=== PATIENT | female | born 1995 | race Caucasian/White ===

== ENCOUNTER 2017-04-12 20:32 | Observation (INO) | payer OTHER, SELFPAY ==
[~2017-04-12] VITALS: Ht 170.2 cm; Wt 61.3 kg
[2017-04-12] MEDS ORDERED: NS 1,000 ML IV SCH (21:16)
[2017-04-12] MEDS ORDERED: dexameTHASONE 20 MG/5 ML VIAL (J1100) IV ONE (21:30)
[2017-04-12] MEDS ORDERED: KETOROLAC 30 MG/ML VIAL (J1885) IV ONE (21:30)
[2017-04-12 21:47] LABS: BASO % 0.5 % (0.0-1.0); EOS # 0.2 K/mm3 (0.0-0.50); EOS % 1.7 % (0.0-3.0); LARGE UNSTAINED CELL # 0.1 K/mm3 (0.0-0.4); LARGE UNSTAINED CELL % 0.8 % (0.0-4.0); LYMPH # 1.7 K/mm3 (1.5-6.5); MEAN CORPUSCULAR HGB CONC 35.2 g/dl (32.0-36.5); MONO # 0.4 K/mm3 (0.0-0.8); MONO % 3.8 % (0.0-5.0); NEUTROPHILS # 7.5 K/mm3 (1.8-7.7); NEUTROPHILS % 76.2 % (36.0-66.0); PLATELET COUNT, AUTOMATED 180 k/mm3 (150-450); RED CELL DISTRIBUTION WIDTH 13.4 % (11.5-14.5); WHITE BLOOD COUNT 9.8 K/mm3 (4.0-10.0)
[2017-04-12 22:03] LABS: CONTROL LINE HCG INT CTR LINE PRESENT
[2017-04-12 22:22] LABS: METHADONE URINE NEGATIVE (NEGATIVE)
[2017-04-12 22:24] LABS: ALBUMIN 3.6 GM/DL (3.2-5.2); ALBUMIN/GLOBULIN RATIO 1.29 (1.00-1.93); ALKALINE PHOSPHATASE 70 U/L (45-117); ALT/SGPT 24 U/L (12-78); ANION GAP 9 MEQ/L (8-16); AST/SGOT 16 U/L (15-37); BILIRUBIN,DIRECT < 0.1 MG/DL (0.0-0.2); BILIRUBIN,TOTAL 0.3 MG/DL (0.2-1.0); BLOOD UREA NITROGEN 15 MG/DL (7-18); CALCIUM LEVEL 8.4 MG/DL (8.5-10.1); CARBON DIOXIDE LEVEL 24 MEQ/L (21-32); CHLORIDE LEVEL 112 MEQ/L (98-107); CREATININE FOR GFR 1.22 MG/DL (0.55-1.02); GLOMERULAR FILTRATION RATE 59.2 (>60); GLUCOSE, FASTING 82 MG/DL (70-105); SODIUM LEVEL 145 MEQ/L (136-145); TOTAL PROTEIN 6.4 GM/DL (6.4-8.2)
--- NOTE | 2017-04-12 23:20 | REPUSA ---
CT of the head Clinical history: altered mental status. Technique: Multiple axial CT images were obtained through the head without administration of contrast . Comparison: None. Findings: The ventricles and sulci are symmetric bilaterally. There is no evidence of acute hemorrhag e or infarct. There is no midline shift, mass effect, or extra-axial fluid collection. The osseous st ructures are unremarkable. The visualized paranasal sinuses and mastoid air cells are clear. Impression: Negative study.
[2017-04-12] MEDS ORDERED: TOPIRAMATE (TopAMAX) 25 MG TAB PO ONE (23:45)
[2017-04-13] MEDS ORDERED: MORPHINE 4 MG/ML 1ML SYRINGE IV ONE (00:45)
[2017-04-13] MEDS: NS 1,000 ML IV SCH ×4 (00:50→14:04)
[2017-04-13] MEDS ORDERED: KETOROLAC 30 MG/ML VIAL (J1885) IV PRN (03:30)
[2017-04-13] MEDS ORDERED: ONDANSETRON 4MG/2ML VIAL (J2405) IV PRN (03:30)
--- NOTE | 2017-04-13 03:41 | HPEPDOC ---
General Date of Admission Other Providers Presented from [place] Attending Physician: MILO GOMEZ DO Chief Complaint The patient is a 21-year-old female admitted with a reason for visit of Pain All Over/Headache. Source: Patient Exam Limitations: No limitations Timing/Duration: 4-6 hours Severity: Severe Associated Symptoms: Headaches, Malaise, Nausea, Vomiting, Weakness, Dizziness History of Present Illness 21-year-old female serving in [employer], presented with intractable headache for past few hours associated with nausea, vomiting, weakness, dizziness. She never had similar symptoms in the past. She denies any focal weakness, tingling, numbness last months. He was treated for Lyme meningitis with the doxycycline and she was hospitalized for 6 days and had bed rest for 6 days. Evidently she got very covered, but now her headache is back. It is generally by 10 in intensity, sharp, radiating to neck and back associated with eye pain. Patient also appears confused, difficulty concentrating, unable to sleep Home Medications No Active Prescriptions or Reported Meds Allergies Coded Allergies: No Known Allergies (Unverified , 04/12/17) Past Medical History Medical History None Surgical History Appendectomy Family History None Social History * Smoker: Denies Alcohol: Denies Drugs: denies Recent Travel/Sick Contacts: Denies: Recent travel, Recent sick contacts Psychosocial History: No pertinent psych hx Review of Symptoms Constitutional: Reports: Other (headache), Denies: Chills, Fever, Night Sweats Eyes: Denies: Pain, Vision change ENT: Denies: Head Aches, Ear Pain, Dysphagia Skin: Denies: Rash, Lesions, Breakdown Pulmonary: Denies: Dyspnea, Cough Cardiovascular: Denies: Chest Pain, Palpitations, Orthopnea, Paroxysmal Noc. Dyspnea, Lt Headedness Gastrointestinal: Denies: Nausea, Vomiting, Abdominal Pain, Diarrhea Genitourinary: Denies: Dysuria, Frequency, Incontinence, Retention Hematologic: Denies: Bruising, Bleeding Excessively Musculoskeletal: Denies: Neck Pain, Back Pain, Joint Pain, Muscle Pain, Spasms Neurological: Reports: Confusion, Denies: Weakness, Numbness, Change in speech Psych: Reports: Mood Normal, Denies: Depression, Memory Issues Physical Examination General Exam: Positive: Alert, No Acute Distress Eye Exam: Positive: PERRLA, Conjunctiva & lids normal, EOMI, Negative: Sclera icteric ENT Exam: Positive: Atraumatic, Mucous membr. moist/pink, Pharynx Normal Neck Exam: Positive: Supple, Negative: JVD, thyromegaly Chest Exam: Positive: Clear to auscultation, Normal air movement Heart Exam: Positive: Rate Normal, Regular Rhythm, Normal S1, Normal S2, Negative: Murmurs, Rubs Telemetry: Positive: No significant arrhythmia Abdomen Exam: Positive: Normal bowel sounds, Soft, Negative: Tenderness, Hepatospenomegaly Extremity Exam: Positive: Normal pulses, Negative: Clubbing, Cyanosis, Edema Skin Exam: Positive: Nl turgor and temperature, Negative: Breakdown, Lesion Neuro Exam: Positive: Normal Gait, Normal Speech, Cranial Nerves 3-12 NL, Reflexes 2+ Psych Exam: Positive: Mental status NL, Mood NL, Oriented x 3 Vital Signs Vital Signs Date Time Temp Pulse Resp B/P (MAP) Pulse Ox O2 Delivery O2 Flow Rate FiO2 04/13/17 02:16 97.5 70 18 115/59 (77) 99 Room Air Laboratory Data Labs 24H Laboratory Tests 2 04/12/17 21:28: White Blood Count 9.8, Red Blood Count 3.99L, Hemoglobin 12.8, Hematocrit 36.3, Mean Corpuscular Volume 91.0, Mean Corpuscular Hemoglobin 32.0, Mean Corpuscular Hemoglobin Concent 35.2, Red Cell Distribution Width 13.4, Platelet Count 180, Neutrophils (%) (Auto) 76.2H, Lymphocytes (%) (Auto) 17.0L, Monocytes (%) (Auto) 3.8, Eosinophils (%) (Auto) 1.7, Basophils (%) (Auto) 0.5, Neutrophils # (Auto) 7.5, Lymphocytes # (Auto) 1.7, Monocytes # (Auto) 0.4, Eosinophils # (Auto) 0.2, Basophils # (Auto) 0.0, Large Unclassified Cells % 0.8 , Large Unclassified Cells # 0.1, Anion Gap 9, Glomerular Filtration Rate 59.2L , Calcium Level 8.4L, Aspartate Amino Transf (AST/SGOT) 16, Alanine Aminotransferase (ALT/SGPT) 24, Alkaline Phosphatase 70, Total Bilirubin 0.3, Direct Bilirubin < 0.1, Total Protein 6.4, Albumin 3.6, Albumin/Globulin Ratio 1.29, Thyroid Stimulating Hormone (TSH) 2.980, Human Chorionic Gonadotropin, Qual NEGATIVE, Salicylates Level < 1.7L, Urine Amphetamines Screen NEGATIVE, Urine Benzodiazepines Screen NEGATIVE, Urine Opiates Screen NEGATIVE, Urine Methadone Screen NEGATIVE, Acetaminophen Level 4.9L, Urine Barbiturates Screen NEGATIVE, Urine Phencyclidine Screen NEGATIVE, Urine Cocaine Metabolite Screen NEGATIVE, Urine Cannabinoids Screen NEGATIVE CBC/BMP Laboratory Tests 04/12/17 21:28 Red Blood Count 3.99 L, Mean Corpuscular Volume 91.0, Mean Corpuscular Hemoglobin 32.0, Mean Corpuscular Hemoglobin Concent 35.2, Red Cell Distribution Width 13.4, Neutrophils (%) (Auto) 76.2 H, Lymphocytes (%) (Auto) 17.0 L, Monocytes (%) (Auto) 3.8, Eosinophils (%) (Auto) 1.7, Basophils (%) ( Auto) 0.5, Neutrophils # (Auto) 7.5, Lymphocytes # (Auto) 1.7, Monocytes # (Auto ) 0.4, Eosinophils # (Auto) 0.2, Basophils # (Auto) 0.0 Assessment/Plan 21-year-old female, history of Lyme meningitis last month completed antibiotic course serving in the [employer], presented with intractable headache. CT scan of the head was unremarkable Problems (1) Headache, common migraine, intractable Status: Acute Problem Text: Really start IV Toradol 15 mg every 6 hours for pain control, also due to edema. We will call neurologist if it is seem necessary. Get MRI of the brain dated no fever. No neck stiffness , meningitis is less likely Plan / VTE VTE Prophylaxis Ordered?: Yes Plan Diet: Continue Current Activity: Continue Current Anticipated Discharge: Home LATOSHA SARGENT MD Apr 13, 2017 03:41
[2017-04-13 04:30] VITALS: BP 108/56
[2017-04-13 07:45] LABS: BASO % 0.2 % (0.0-1.0); EOS % 0.3 % (0.0-3.0); LARGE UNSTAINED CELL % 0.3 % (0.0-4.0); LYMPH # 0.5 K/mm3 (1.5-6.5); MEAN CORPUSCULAR HEMOGLOBIN 31.6 pg (27.0-33.0); MEAN CORPUSCULAR VOLUME 92.9 fl (80.0-96.0); MONO # 0.2 K/mm3 (0.0-0.8); MONO % 1.6 % (0.0-5.0); NEUTROPHILS # 9.8 K/mm3 (1.8-7.7); NEUTROPHILS % 92.6 % (36.0-66.0); PLATELET COUNT, AUTOMATED 160 k/mm3 (150-450); RED CELL DISTRIBUTION WIDTH 13.1 % (11.5-14.5); WHITE BLOOD COUNT 10.6 K/mm3 (4.0-10.0)
[2017-04-13 08:00] VITALS: BP 119/59
[2017-04-13 08:06] LABS: ALBUMIN 3.3 GM/DL (3.2-5.2); ALBUMIN/GLOBULIN RATIO 1.14 (1.00-1.93); ALKALINE PHOSPHATASE 58 U/L (45-117); ALT/SGPT 22 U/L (12-78); ANION GAP 7 MEQ/L (8-16); AST/SGOT 9 U/L (15-37); BILIRUBIN,TOTAL 0.5 MG/DL (0.2-1.0); BLOOD UREA NITROGEN 11 MG/DL (7-18); CALCIUM LEVEL 8.4 MG/DL (8.5-10.1); CARBON DIOXIDE LEVEL 22 MEQ/L (21-32); CHLORIDE LEVEL 112 MEQ/L (98-107); CREATININE FOR GFR 0.77 MG/DL (0.55-1.02); GLOMERULAR FILTRATION RATE > 60.0 (>60); GLUCOSE, FASTING 112 MG/DL (70-105); POTASSIUM SERUM 4.3 MEQ/L (3.5-5.1); SODIUM LEVEL 141 MEQ/L (136-145); TOTAL PROTEIN 6.2 GM/DL (6.4-8.2)
[2017-04-13] MEDS ORDERED: TOPIRAMATE (TopAMAX) 25 MG TAB PO SCH (09:00)
[2017-04-13] MEDS ORDERED: ENOXAPARIN 40 MG/0.4 ML SYRINGE (J1650) SC SCH (09:00)
[2017-04-13] MEDS ORDERED: PERCOCET 5MG/325MG TAB PO ONE (10:00)
[2017-04-13] MEDS ORDERED: MORPHINE 2 MG/ML 1ML SYRINGE IV PRN (10:00)
[2017-04-13] MEDS ORDERED: NALOXONE INJ 0.4 MG/1 ML VIAL (J2310) IV PRN (10:00)
[2017-04-13] MEDS ORDERED: PERCOCET 5MG/325MG TAB PO PRN ×2 (10:00)
--- NOTE | 2017-04-13 12:03 | REP ---
MR BRAIN WITHOUT CONTRAST: HISTORY: Headache. COMPARISON: CT 04/12/2017. There are no areas of abnormal signal intensity in the brain. There is no intraparenchymal hemorrhage, infarct, mass or midline shift. 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 The ventricular system is normal in appearance. There is no extracerebral collection. A retention cyst is present in the left maxillary sinus. IMPRESSION: There is no intracranial lesion. Signed by Bayron Estrada MD 04/13/2017 12:18 P
[2017-04-13 12:30] VITALS: BP 120/73
[2017-04-13] MEDS ORDERED: PERCOCET PO (14:57)
[2017-04-13] MEDS ORDERED: TOPA25TA10 PO (14:57)
[2017-04-13 15:23] VITALS: BP 120/73
--- NOTE | 2017-04-13 16:20 | REP ---
MRA HEAD WITHOUT AND WITH CONTRAST: HISTORY: Headache. CONTRAST: ProHance 12 mL. Unenhanced and enhanced 2D [id number] MR venography was performed. There are no filling defects in the deep venous system or dural sinuses. The deep venous system and dural sinuses are patent. There are no focal areas of stenosis. IMPRESSION:Normal MRA head. Signed by Bayron Estrada MD 04/13/2017 04:24 P
--- NOTE | 2017-04-13 22:01 | CR ---
DATE OF CONSULTATION: 04/13/2017 REASON FOR CONSULTATION: History of Lyme disease with recurrent headache. [place] is a 21-year-old female who is in the [employer], was here in [place] for training for 1 week. Yesterday the patient developed severe headache, weakness, lethargy and low grade temperature of 99. The patient was out training for all day and it was extremely hot and humid yesterday. The patient was brought into the emergency room with severe intractable headache and therefore was admitted to the hospital. The patient was previously hospitalized on 03/14/2017, in [place] when she was admitted at that time with fever, severe headache, leukopenia and thrombocytopenia and was diagnosed with early Lyme disease. She had a lumbar puncture done for severe headache which had only one white cell. CSF was negative for enterovirus and herpes virus as well as Lyme CSF was negative. Urine was negative. Influenza A and B was negative and a plasma serology negative, Babesia PCR negative, blood cultures were negative. She had then also MRI of the lumbar spine and cervical (C) spine, they were both negative. The only positive finding was a Lyme serology, positive IgM, western blot was two out of three positive bands. She was initially treated with IV Rocephin and then switched to doxycycline to cover also for anaplasmosis while waiting for the results. She finished a 2-week course of doxycycline which had ended on 03/29/2017. The patient had continuous headache after the lumbar puncture she had at the [facility] which felt like a spinal headache. She had to lay in bed for 6 days due to severe headache when she stood up. She never got a blood patch but she drank a lot of fluids until completely recovered. The patient came to [place] for a week training and has been very physically active and with the heat she developed a severe headache. HOME MEDICATIONS: None. She had finished doxycycline on 03/29/2017. ALLERGIES: None. PAST MEDICAL HISTORY: A history of attention deficit hyperactivity disorder (ADHD) and a history of seizure disorder for which she does not take medication. PAST SURGICAL HISTORY: Addendectomy. FAMILY HISTORY: Nonrevealing. SOCIAL HISTORY: She denies alcohol or drug use although her urine drug screen was positive for cannabis on her previous hospitalization but she stated she does not smoke, people around her were smoking in the car. REVIEW OF SYSTEMS: She did not have fevers, although she calls 99 degrees a fever for her but no documented fever in the past 24 hours. No chills. No night sweats. She has a severe headache. No double vision. No sore throat. No chest pain or shortness of breath. She feels weak but no abdominal pain, nausea, vomiting or diarrhea. No urinary symptoms. She reported as being confused but according to her coworker she was just slow and lethargic. PHYSICAL EXAMINATION: She is a healthy looking female in no acute distress. Temperature is 98.1, pulse 72, respirations 16, blood pressure 120/73, oxygen saturation 99% on room air. Heart: Normal S1, S2. No murmurs, rubs or gallops. Lungs are clear. No wheezes, rales, or rhonchi. Abdomen is soft, nontender. No visceromegaly. Extremities no clubbing, cyanosis or edema. No calf tenderness. Neck is supple. No jugular venous distention (JVD). No bruits. Full range of motion of the neck. Oropharynx is clear. MEDICATIONS: - Percocet one tablet by mouth every 4 hours as needed - morphine 2 mg IV every 4 hours as needed - Topamax 50 mg by mouth twice a day - Zofran as needed - Decadron 10 mg IV was given to her on 04/12/2017 MRI of the brain shows no acute finding. Angiography MRI was normal, MRA head, CT was negative. 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 The patient has recently been treated for acute Lyme disease with doxycycline for 2 weeks and did not have a chance to recover from her illness when she was sent for training for her 1 week for [employer]. With the heat index yesterday the patient developed a severe headache which is probably a combination of stress, heat, and recent history of Lyme disease. All studies have been negative. Her CBC is normal, inflammation markers are normal. MRI, MRA are normal. Lyme serology is pending but I expect it to be positive. PLAN: The patient could be discharged home. She needs to be off work for the next 10 days. She cannot go back to training sessions. She needs to followup with her primary care provider in 7 days. She was given copies of all her labs and MRI. She was encouraged to drink a lot of fluid and take Motrin as needed for pain. LABORATORY DATA: On 04/12/2017, white count was 9.8, hemoglobin 12.8, hematocrit 36.3, platelets 180, 76% neutrophils, 17% lymphocytes, 4% monocytes, sedimentation rate 6. Sodium 141, potassium 4.3, chloride 112, bicarbonate 22, BUN 11, creatinine 0.7 which is down from 1.2 yesterday when she came to the ER, glucose 112, calcium 8.4, bilirubin 0.5, AST 90, ALT 22, alkaline phosphatase 58, CRP less than 0.3, total protein 6.2, albumin 3.3. TSH 2.98 and test was negative. Also the case has been discussed with Dr. Malone, who agreed on discharging the patient. I also called her sergeant who will be picking her up today as they are leaving back for [place] tomorrow and he agrees on allowing her to be off for 10 days.
[2017-04-15 00:08] LABS: Lyme Disease IgG/IgM Antibodie <0.91 ISR (0.00-0.90); Lyme Disease IgM Ab Quantitati <0.80 index (0.00-0.79)
== END 2017-04-13 17:43 | disposition home or self-care (01) ==
LOC: M ED 22:44 → M ED INP 04-13 03:26 → M PED 04-13 12:21
PROVIDERS: ADMIT Internal Medicine; ATTEND Internal Medicine
DX: G43.011 Migraine without aura, intractable, with status migrainosus (principal)
CPT/HCPCS: 36415; 70450; 70546; 70551; 80048; 80053; 80076; 80306; 84443; 84703; 85025; 85652; 86140; 86617; 87040; 93041; 94760; 96361; 96372; 96374; 96375; 96376; 99285; A9576; G0463; G0480; J1100; J1650; J1885